=== PATIENT | female | born 1975 | race Caucasian/White ===

== ENCOUNTER 2018-05-26 18:41 | Emergency (ER) | payer SELFPAY ==
[2018-05-26] MEDS ORDERED: Acetaminophen/Codeine 30-300mg Tablet ONE (20:10)
== END 2018-05-26 20:05 | disposition home or self-care (01) ==
LOC: NAV ERS 18:41
DX: S83.91XA Sprain of unspecified site of right knee, initial encounter (principal); I10 Essential (primary) hypertension; F32.9 Major depressive disorder, single episode, unspecified; G47.30 Sleep apnea, unspecified; F17.210 Nicotine dependence, cigarettes, uncomplicated; Z79.51 Long term (current) use of inhaled steroids; X50.1XXA Overexertion from prolonged static or awkward postures, initial encounter
CPT/HCPCS: 99282